=== PATIENT | female | born 1955 | race Asian ===

== ENCOUNTER 2022-12-08 10:18 | Day surgery (SDC) | payer OTHER ==
[2022-12-06 11:12] VITALS: BMI 26.6
[2022-12-08] MEDS: PHENYLEPHRINE 2.5% OPTHALMIC DROP 2ML BOTTLE ONE ×3 (10:55→11:05)
[2022-12-08] MEDS: TROPICAMIDE 1% OPHTH SOLN 15 ML BOTTLE ONE ×3 (10:55→11:05)
[2022-12-08] MEDS: CYCLOPENTOLATE 2% OPHTH SOLN 2 ML BOTTLE ONE ×3 (10:55→11:05)
[2022-12-08] MEDS: CIPROFLOXACIN 0.3% EYE DROPS 5 ML BOTTLE ONE ×2 (10:55→11:05)
[2022-12-08] MEDS ORDERED: BSS (NA/CA/MG/K) BALANCED SALT SOLUTION OPHTH SOLN 15 ML BOTTLE ONE (10:58)
[2022-12-08] MEDS ORDERED: NEO/POLYMYX B SULF/DEXAMETH OPHTHALMIC 5ML BOTTLE ONE (10:58)
[2022-12-08] MEDS ORDERED: CARBACHOL 0.01% INTRA-OCULAR 1.5 ML VIAL ONE (10:58)
[2022-12-08] MEDS ORDERED: TETRACAINE 0.5% OPHTH SOLN 2 ML BOTTLE ONE (10:58)
[2022-12-08] MEDS ORDERED: CIPROFLOXACIN 0.3% EYE DROPS 5 ML BOTTLE OD ONE (11:00)
[2022-12-08] MEDS ORDERED: MIDAZOLAM HCL 2 MG/2 ML SINGLE DOSE VIAL ONE (11:27)
[2022-12-08 12:34] VITALS: PULSE 86; RESP 16; TEMP 97.6
[2022-12-08 12:36] VITALS: BP 137/82
== END 2022-12-08 12:30 | disposition home or self-care (01) ==
LOC: FASU 10:18
PROVIDERS: ATTEND Ophthalmology
PROC: 08RJ3JZ Replacement of Right Lens with Synthetic Substitute, Percutaneous Approach (ICD-10-PCS; principal; 2022-12-08 11:32)
DX: H26.8 Other specified cataract (principal)
CPT/HCPCS: 66984; V2632; 82962

== ENCOUNTER 2022-12-29 06:58 | Day surgery (SDC) | payer OTHER ==
[2022-12-23 11:15] VITALS: BMI 26.5
[2022-12-29] MEDS ORDERED: LIDOCAINE 1% P/F 10 MG/ML VIAL ONE (07:19)
[2022-12-29] MEDS ORDERED: TETRACAINE 0.5% OPHTH SOLN 2 ML BOTTLE ONE (07:19)
[2022-12-29] MEDS ORDERED: CARBACHOL 0.01% INTRA-OCULAR 1.5 ML VIAL ONE (07:19)
[2022-12-29] MEDS ORDERED: NEO/POLYMYX B SULF/DEXAMETH OPHTHALMIC 5ML BOTTLE ONE (07:19)
[2022-12-29] MEDS ORDERED: BSS (NA/CA/MG/K) BALANCED SALT SOLUTION OPHTH SOLN 15 ML BOTTLE ONE (07:19)
[2022-12-29] MEDS: TROPICAMIDE 1% OPHTH SOLN 15 ML BOTTLE ONE ×3 (07:30→07:40)
[2022-12-29] MEDS: CIPROFLOXACIN 0.3% EYE DROPS 5 ML BOTTLE ONE ×3 (07:30→07:40)
[2022-12-29] MEDS: PHENYLEPHRINE 2.5% OPTHALMIC DROP 2ML BOTTLE ONE ×3 (07:30→07:40)
[2022-12-29] MEDS: CYCLOPENTOLATE 2% OPHTH SOLN 2 ML BOTTLE ONE ×3 (07:30→07:40)
[2022-12-29 07:35] VITALS: RESP 16
[2022-12-29] MEDS ORDERED: MIDAZOLAM HCL 2 MG/2 ML SINGLE DOSE VIAL ONE (08:26)
[2022-12-29] MEDS ORDERED: ONDANSETRON 4 MG/2 ML VIAL ONE (08:26)
[2022-12-29 09:34] VITALS: TEMP 98
[2022-12-29 10:23] VITALS: BP 113/62; PULSE 90
== END 2022-12-29 09:55 | disposition home or self-care (01) ==
LOC: FASU 06:58
PROVIDERS: ATTEND Ophthalmology
PROC: 08RK3JZ Replacement of Left Lens with Synthetic Substitute, Percutaneous Approach (ICD-10-PCS; principal; 2022-12-29 09:02)
DX: H26.8 Other specified cataract (principal)
CPT/HCPCS: 66984; V2632; 82962

== ENCOUNTER 2023-10-02 06:58 | Inpatient (IN) | payer OTHER ==
[2023-10-02 07:29] VITALS: BMI 23.6
[2023-10-02] MEDS ORDERED: SODIUM CHLORIDE 0.9% 500 ML INFUS.BAG IV ONE ×2 (08:08→11:35)
[2023-10-02 08:29] LABS: EOS % 5.1 % (0-4.5); HEMATOCRIT 17.9 % (32.4-45.2); INR 1.38 (0.83-1.09); LYMPH % 16.6 % (8-40); MCH 34.5 pg (25.7-33.7); MCHC 31.3 g/dl (32.0-36.0); MEAN PLT VOLUME 7.4 fl (7.5-11.1); MONO % 6.8 % (3.8-10.2); NEUT % 70.5 % (42.8-82.8); PLATELET COUNT 333 10^3/uL (134-434); PROTHROMBIN TIME (PATIENT) 15.9 SEC (9.7-13.0); RBC 1.63 M/mm3 (3.60-5.2); RDW 23.3 % (11.6-15.6); WHITE BLOOD COUNT 7.7 K/mm3 (4.0-10.0)
[2023-10-02] MEDS ORDERED: PIPERACILLIN/TAZOB 3.375 GM 3.375 GM in DEXTROSE 5%-WATER - 50 ML IVPB ONE (08:29)
[2023-10-02] MEDS ORDERED: VANCOMYCIN 1,000 MG in DEXTROSE 5%-WATER - 250 ML IVPB ONE (08:29)
[2023-10-02 08:32] LABS: ACTIVATED PTT 35.7 SECONDS (25.2-36.5)
[2023-10-02 08:34] LABS: HEMOGLOBIN 5.6 GM/dL (10.7-15.3)
[2023-10-02 08:43] LABS: CHLORIDE 101 mmol/L (98-107); POTASSIUM 5.4 mmol/L (3.5-5.1); SODIUM 133 mmol/L (136-145)
[2023-10-02 08:45] LABS: CALCIUM 7.8 mg/dL (8.5-10.1)
[2023-10-02 08:46] LABS: ALBUMIN 1.8 g/dl (3.4-5.0); ANION GAP 20 mmol/L (4-13); CO2 12 mmol/L (21-32); GLUCOSE,RANDOM 307 mg/dL (74-106)
[2023-10-02 08:50] LABS: SGOT/AST 24 U/L (15-37); SGPT/ALT 19 U/L (13-61)
[2023-10-02 08:51] LABS: BILIRUBIN,TOTAL 0.3 mg/dL (0.2-1); TOT PROT 5.6 g/dl (6.4-8.2)
[2023-10-02 08:52] LABS: ALK PHOS 100 U/L (45-117)
[2023-10-02] MEDS ORDERED: ACETAMINOPHEN 1000 MG/100 ML BAG IVPB ONE (08:53)
[2023-10-02 08:56] LABS: CREATININE 10.4 mg/dL (0.55-1.3)
[2023-10-02 09:00] LABS: VENOUS BASE EXCESS -15.4 mmol/L (-2-2); VENOUS PCO2 32.9 mmHg (38-52)
[2023-10-02 09:06] LABS: VENOUS PH 7.169 (7.310-7.410)
[2023-10-02] MEDS ORDERED: PANTOPRAZOLE SODIUM 40 MG VIAL IVPUSH ONE (09:41)
[2023-10-02] MEDS ORDERED: PANTOPRAZOLE SODIUM 80 MG in SODIUM CHLORIDE 100 ML IVPB SCH (09:45)
[2023-10-02] MEDS ORDERED: PANTOPRAZOLE SODIUM 40 MG VIAL ONE (11:37)
[2023-10-02] MEDS ORDERED: ACETAMINOPHEN INJECTION 100 ML IVPB ONE (11:37)
[2023-10-02] MEDS ORDERED: PHYTONADIONE 10 MG/1 ML AMP IVPB ONE (12:15)
[2023-10-02] MEDS ORDERED: VANCOMYCIN 1 GRAM (PRE-DOCKED) 1,000 MG/250 ML BAG IVPB ONE (12:28)
[2023-10-02] MEDS ORDERED: PIPERACILLIN/TAZOB 3.375 GM 3.375 GM/50 ML BAG IVPB ONE (12:29)
[2023-10-02 12:36] LABS: BASO % 0.5 % (0-2.0); EOS % 0.4 % (0-4.5); HEMATOCRIT 29.4 % (32.4-45.2); HEMOGLOBIN 9.8 GM/dL (10.7-15.3); LYMPH % 17.3 % (8-40); MCH 32.3 pg (25.7-33.7); MCHC 33.4 g/dl (32.0-36.0); MEAN CELL VOLUME 96.6 fl (80-96); MONO % 10.3 % (3.8-10.2); NEUT % 71.5 % (42.8-82.8); PLATELET COUNT 283 10^3/uL (134-434); RBC 3.05 M/mm3 (3.60-5.2); RDW 22.3 % (11.6-15.6); WHITE BLOOD COUNT 9.4 K/mm3 (4.0-10.0)
[2023-10-02] MEDS: PANTOPRAZOLE SODIUM 160 MG in SODIUM CHLORIDE 290 ML IVPB SCH (12:38)
[2023-10-02] MEDS ORDERED: PHYTONADIONE 10 MG/1 ML AMP ONE (12:48)
[2023-10-02 12:54] LABS: CHLORIDE 102 mmol/L (98-107); POTASSIUM 5.4 mmol/L (3.5-5.1); SODIUM 136 mmol/L (136-145)
[2023-10-02 12:56] LABS: CALCIUM 7.8 mg/dL (8.5-10.1)
[2023-10-02 12:57] LABS: ANION GAP 14 mmol/L (4-13); CO2 21 mmol/L (21-32); GLUCOSE,RANDOM 167 mg/dL (74-106); MAGNESIUM 2.2 mg/dL (1.8-2.4)
[2023-10-02 13:00] LABS: IRON SERUM 190 ug/dL (50-175); TOTAL IRON BINDING CAPACITY 195 ug/dL (250-450)
[2023-10-02 13:09] LABS: LACTIC ACID 4.2 mmol/L (0.4-2.0)
[2023-10-02 13:30] LABS: CREATININE 10.2 mg/dL (0.55-1.3); PHOSPHOROUS 8.7 mg/dL (2.5-4.9)
[2023-10-02 13:47] LABS: ANISOCYTOSIS 2+; MACROCYTOSIS 2+
[2023-10-02 15:12] LABS: VENOUS BASE EXCESS -4.4 mmol/L (-2-2); VENOUS O2 SATURATION 41.2 % (70-80); VENOUS PCO2 36.2 mmHg (38-52); VENOUS PH 7.369 (7.310-7.410)
[2023-10-02] MEDS ORDERED: ACETAMINOPHEN 325 MG TABLET (FP) PO ONE (17:21)
[2023-10-02] MEDS ORDERED: ACETAMINOPHEN 500 MG TABLET (FP) ONE (17:54)
[2023-10-02] MEDS: INSULIN ASPART SLIDING SCALE (NOVOLOG) 1 VIAL SQ SCH (18:01)
[2023-10-03] MEDS: INSULIN ASPART SLIDING SCALE (NOVOLOG) 1 VIAL SQ SCH ×3 (06:35→17:25)
[2023-10-03 09:06] LABS: BASO % 0.8 % (0-2.0); EOS % 16.2 % (0-4.5); HEMATOCRIT 25.8 % (32.4-45.2); HEMOGLOBIN 8.8 GM/dL (10.7-15.3); LYMPH % 14.7 % (8-40); MCH 33.4 pg (25.7-33.7); MCHC 33.9 g/dl (32.0-36.0); MEAN CELL VOLUME 98.4 fl (80-96); MEAN PLT VOLUME 7.2 fl (7.5-11.1); MONO % 7.4 % (3.8-10.2); NEUT % 60.9 % (42.8-82.8); PLATELET COUNT 274 10^3/uL (134-434); RBC 2.63 M/mm3 (3.60-5.2); RDW 25.2 % (11.6-15.6); WHITE BLOOD COUNT 13.4 K/mm3 (4.0-10.0)
[2023-10-03 09:11] LABS: INR 1.17 (0.83-1.09); PROTHROMBIN TIME (PATIENT) 13.5 SEC (9.7-13.0)
[2023-10-03 09:41] LABS: CHLORIDE 102 mmol/L (98-107); POTASSIUM 4.8 mmol/L (3.5-5.1); SODIUM 139 mmol/L (136-145)
[2023-10-03 09:42] LABS: CALCIUM 8.3 mg/dL (8.5-10.1)
[2023-10-03 09:44] LABS: ANION GAP 14 mmol/L (4-13); BLOOD UREA NITROGEN 60.7 mg/dL (7-18); CO2 24 mmol/L (21-32); GLUCOSE,RANDOM 155 mg/dL (74-106); MAGNESIUM 1.9 mg/dL (1.8-2.4)
[2023-10-03 09:47] LABS: SGOT/AST 21 U/L (15-37); SGPT/ALT 16 U/L (13-61)
[2023-10-03 09:48] LABS: BILIRUBIN,TOTAL 0.5 mg/dL (0.2-1); PHOSPHOROUS 8.7 mg/dL (2.5-4.9); TOT PROT 5.3 g/dl (6.4-8.2)
[2023-10-03 09:49] LABS: ALK PHOS 91 U/L (45-117)
[2023-10-03 11:05] LABS: CREATININE 10.5 mg/dL (0.55-1.3)
[2023-10-03] MEDS: PANTOPRAZOLE SODIUM 160 MG in SODIUM CHLORIDE 290 ML IVPB SCH (12:23)
[2023-10-03] MEDS ORDERED: INSULIN ASPART SLIDING SCALE (NOVOLOG) 1 VIAL SQ ONE (12:24)
[2023-10-03] MEDS: ACETAMINOPHEN 325 MG TABLET (FP) PO PRN (15:54)
[2023-10-03] MEDS ORDERED: ACETAMINOPHEN 1000 MG/100 ML BAG IVPB ONE (17:31)
[2023-10-03] MEDS: PERITONEAL DIALYSIS 1.5% SOLN 2,500 ML IP SCH (17:55)
[2023-10-04] MEDS: PERITONEAL DIALYSIS 1.5% SOLN 2,500 ML IP SCH ×5 (00:30→23:40)
[2023-10-04] MEDS: PANTOPRAZOLE SODIUM 160 MG in SODIUM CHLORIDE 290 ML IVPB SCH (03:37)
[2023-10-04] MEDS: INSULIN ASPART SLIDING SCALE (NOVOLOG) 1 VIAL SQ SCH ×3 (06:30→17:50)
[2023-10-04 08:51] LABS: MCH 34.5 pg (25.7-33.7); MEAN CELL VOLUME 98.8 fl (80-96); MEAN PLT VOLUME 7.2 fl (7.5-11.1); PLATELET COUNT 232 10^3/uL (134-434); RBC 2.33 M/mm3 (3.60-5.2); RDW 25.1 % (11.6-15.6); WHITE BLOOD COUNT 9.5 K/mm3 (4.0-10.0)
[2023-10-04 08:54] LABS: INR 1.08 (0.83-1.09); PROTHROMBIN TIME (PATIENT) 12.5 SEC (9.7-13.0)
[2023-10-04 09:08] LABS: CHLORIDE 101 mmol/L (98-107); SODIUM 137 mmol/L (136-145)
[2023-10-04 09:13] LABS: ANION GAP 14 mmol/L (4-13); CALCIUM 8.9 mg/dL (8.5-10.1); CO2 23 mmol/L (21-32); GLUCOSE,RANDOM 179 mg/dL (74-106)
[2023-10-04 09:15] LABS: ALBUMIN 1.8 g/dl (3.4-5.0); BLOOD UREA NITROGEN 52.6 mg/dL (7-18)
[2023-10-04 09:16] LABS: SGPT/ALT 16 U/L (13-61)
[2023-10-04 09:17] LABS: BILIRUBIN,TOTAL 0.4 mg/dL (0.2-1); SGOT/AST 18 U/L (15-37); TOT PROT 5.1 g/dl (6.4-8.2)
[2023-10-04 09:19] LABS: ALK PHOS 115 U/L (45-117)
[2023-10-04 09:22] LABS: CREATININE 9.7 mg/dL (0.55-1.3)
[2023-10-04 09:50] LABS: ANISOCYTOSIS 1+
[2023-10-04] MEDS ORDERED: INSULIN ASPART SLIDING SCALE (NOVOLOG) 1 VIAL SQ ONE (12:10)
[2023-10-04] MEDS: PANTOPRAZOLE SODIUM 40 MG VIAL IVPUSH SCH (22:55)
[2023-10-04] MEDS: ACETAMINOPHEN 325 MG TABLET (FP) PO PRN (23:00)
[2023-10-05] MEDS: INSULIN ASPART SLIDING SCALE (NOVOLOG) 1 VIAL SQ SCH ×3 (06:09→17:36)
[2023-10-05] MEDS: PERITONEAL DIALYSIS 1.5% SOLN 2,500 ML IP SCH ×3 (06:43→19:27)
[2023-10-05 08:54] LABS: HEMATOCRIT 23.9 % (32.4-45.2); HEMOGLOBIN 8.1 GM/dL (10.7-15.3); MCH 33.4 pg (25.7-33.7); MCHC 33.8 g/dl (32.0-36.0); MEAN CELL VOLUME 98.7 fl (80-96); MEAN PLT VOLUME 7.4 fl (7.5-11.1); PLATELET COUNT 214 10^3/uL (134-434); RBC 2.42 M/mm3 (3.60-5.2); RDW 24.6 % (11.6-15.6)
[2023-10-05] MEDS ORDERED: IRON SUCROSE INJECTION 200 MG in SODIUM CHLORIDE 90 ML IVPB ONE (09:10)
[2023-10-05 09:14] LABS: CHLORIDE 99 mmol/L (98-107); POTASSIUM 3.2 mmol/L (3.5-5.1); SODIUM 137 mmol/L (136-145)
[2023-10-05 09:17] LABS: CALCIUM 8.3 mg/dL (8.5-10.1)
[2023-10-05 09:18] LABS: ALBUMIN 1.7 g/dl (3.4-5.0); ANION GAP 14 mmol/L (4-13); BLOOD UREA NITROGEN 42.3 mg/dL (7-18); CO2 24 mmol/L (21-32); GLUCOSE,RANDOM 194 mg/dL (74-106)
[2023-10-05 09:21] LABS: SGOT/AST 20 U/L (15-37); SGPT/ALT 15 U/L (13-61)
[2023-10-05 09:22] LABS: TOT PROT 4.9 g/dl (6.4-8.2)
[2023-10-05 09:23] LABS: BILIRUBIN,TOTAL 0.4 mg/dL (0.2-1)
[2023-10-05 09:25] LABS: ALK PHOS 97 U/L (45-117)
[2023-10-05 09:29] LABS: CREATININE 8.3 mg/dL (0.55-1.3)
[2023-10-05] MEDS: PANTOPRAZOLE SODIUM 40 MG VIAL IVPUSH SCH (09:52)
[2023-10-05 09:58] LABS: MAGNESIUM 1.8 mg/dL (1.8-2.4)
[2023-10-05 11:02] LABS: ANISOCYTOSIS 1+; MACROCYTOSIS 2+
[2023-10-05] MEDS ORDERED: POTASSIUM CHLORIDE ORAL LIQUID 20 MEQ/15 ML PO ONE ×2 (11:22→13:45)
[2023-10-05 11:56] LABS: IRON SERUM 155 ug/dL (50-175)
[2023-10-05 11:57] LABS: TOTAL IRON BINDING CAPACITY 204 ug/dL (250-450)
[2023-10-05 12:19] LABS: IRON SERUM 69 ug/dL (50-175); TOTAL IRON BINDING CAPACITY 166 ug/dL (250-450)
[2023-10-05 19:08] LABS: IG A QN SERUM. 514 mg/dL (87-352)
[2023-10-05] MEDS: ACETAMINOPHEN 325 MG TABLET (FP) PO PRN (21:40)
[2023-10-05] MEDS: PANTOPRAZOLE 40 MG TABLET PO SCH (21:40)
[2023-10-06] MEDS: PERITONEAL DIALYSIS 1.5% SOLN 2,500 ML IP SCH ×5 (01:19→23:50)
[2023-10-06] MEDS ORDERED: INSULIN ASPART SLIDING SCALE (NOVOLOG) 1 VIAL SQ ONE (06:33)
[2023-10-06] MEDS: INSULIN ASPART SLIDING SCALE (NOVOLOG) 1 VIAL SQ SCH ×3 (06:42→17:26)
[2023-10-06 09:11] LABS: HEMATOCRIT 24.4 % (32.4-45.2); HEMOGLOBIN 8.2 GM/dL (10.7-15.3); MCH 33.9 pg (25.7-33.7); MCHC 33.5 g/dl (32.0-36.0); MEAN CELL VOLUME 101.3 fl (80-96); MEAN PLT VOLUME 7.5 fl (7.5-11.1); PLATELET COUNT 231 10^3/uL (134-434); RBC 2.41 M/mm3 (3.60-5.2); RDW 25.3 % (11.6-15.6); RETICULOCYTES 5.89 % (0.5-1.5); WHITE BLOOD COUNT 9.8 K/mm3 (4.0-10.0)
[2023-10-06 09:39] LABS: CHLORIDE 100 mmol/L (98-107); POTASSIUM 3.7 mmol/L (3.5-5.1); SODIUM 137 mmol/L (136-145)
[2023-10-06 09:50] LABS: ALBUMIN 1.7 g/dl (3.4-5.0); ANION GAP 12 mmol/L (4-13); BLOOD UREA NITROGEN 31.7 mg/dL (7-18); CALCIUM 8.4 mg/dL (8.5-10.1); CO2 25 mmol/L (21-32)
[2023-10-06 09:52] LABS: SGPT/ALT 20 U/L (13-61)
[2023-10-06 09:53] LABS: IRON SERUM 159 ug/dL (50-175); SGOT/AST 24 U/L (15-37); TOTAL IRON BINDING CAPACITY 167 ug/dL (250-450)
[2023-10-06 09:54] LABS: TOT PROT 5.1 g/dl (6.4-8.2)
[2023-10-06 09:56] LABS: ALK PHOS 91 U/L (45-117)
[2023-10-06 09:58] LABS: BILIRUBIN,TOTAL 0.4 mg/dL (0.2-1)
[2023-10-06 10:01] LABS: GLUCOSE,RANDOM 146 mg/dL (74-106)
[2023-10-06 10:11] LABS: CREATININE 7.6 mg/dL (0.55-1.3)
[2023-10-06 10:57] LABS: ANISOCYTOSIS 2+; MACROCYTOSIS 2+
[2023-10-06] MEDS: PANTOPRAZOLE 40 MG TABLET PO SCH ×2 (11:16→21:03)
[2023-10-06 15:20] LABS: HEMATOCRIT 24.7 % (32.4-45.2); HEMOGLOBIN 8.1 GM/dL (10.7-15.3); MCH 32.5 pg (25.7-33.7); MCHC 32.9 g/dl (32.0-36.0); MEAN CELL VOLUME 98.7 fl (80-96); MEAN PLT VOLUME 7.3 fl (7.5-11.1); PLATELET COUNT 237 10^3/uL (134-434); RDW 24.5 % (11.6-15.6); WHITE BLOOD COUNT 9.6 K/mm3 (4.0-10.0)
[2023-10-06 15:45] LABS: ANISOCYTOSIS 1+; MACROCYTOSIS 1+
[2023-10-07] MEDS: ACETAMINOPHEN 325 MG TABLET (FP) PO PRN ×2 (05:44→11:26)
[2023-10-07] MEDS: PERITONEAL DIALYSIS 1.5% SOLN 2,500 ML IP SCH ×4 (06:04→23:56)
[2023-10-07] MEDS: INSULIN ASPART SLIDING SCALE (NOVOLOG) 1 VIAL SQ SCH ×3 (06:29→17:02)
[2023-10-07 09:54] LABS: HEMOGLOBIN 7.4 GM/dL (10.7-15.3); MCH 34.1 pg (25.7-33.7); MCHC 33.5 g/dl (32.0-36.0); MEAN CELL VOLUME 101.6 fl (80-96); MEAN PLT VOLUME 7.5 fl (7.5-11.1); PLATELET COUNT 221 10^3/uL (134-434); RBC 2.17 M/mm3 (3.60-5.2); RDW 25.3 % (11.6-15.6); WHITE BLOOD COUNT 9.3 K/mm3 (4.0-10.0)
[2023-10-07] MEDS: PANTOPRAZOLE 40 MG TABLET PO SCH ×2 (09:57→21:04)
[2023-10-07 10:18] LABS: POTASSIUM 3.6 mmol/L (3.5-5.1)
[2023-10-07 10:24] LABS: ALBUMIN 1.6 g/dl (3.4-5.0); CALCIUM 8.5 mg/dL (8.5-10.1)
[2023-10-07 10:27] LABS: CREATININE 7.3 mg/dL (0.55-1.3)
[2023-10-07 10:28] LABS: BILIRUBIN,TOTAL 0.4 mg/dL (0.2-1); TOT PROT 4.7 g/dl (6.4-8.2)
[2023-10-07 10:37] LABS: ANISOCYTOSIS 1+; MACROCYTOSIS 1+
[2023-10-07 14:18] LABS: HEMATOCRIT 23.2 % (32.4-45.2); HEMOGLOBIN 7.5 GM/dL (10.7-15.3); MCH 32.8 pg (25.7-33.7); MCHC 32.5 g/dl (32.0-36.0); MEAN CELL VOLUME 100.7 fl (80-96); MEAN PLT VOLUME 7.4 fl (7.5-11.1); PLATELET COUNT 253 10^3/uL (134-434); RDW 25.8 % (11.6-15.6); WHITE BLOOD COUNT 9.3 K/mm3 (4.0-10.0)
[2023-10-07 15:08] LABS: ANISOCYTOSIS 2+; MACROCYTOSIS 1+
[2023-10-08] MEDS: ACETAMINOPHEN 325 MG TABLET (FP) PO PRN ×2 (05:46→11:41)
[2023-10-08] MEDS: PERITONEAL DIALYSIS 1.5% SOLN 2,500 ML IP SCH ×3 (05:57→17:05)
[2023-10-08] MEDS: INSULIN ASPART SLIDING SCALE (NOVOLOG) 1 VIAL SQ SCH ×3 (06:12→17:19)
[2023-10-08 08:35] LABS: HEMATOCRIT 22.3 % (32.4-45.2); HEMOGLOBIN 7.2 GM/dL (10.7-15.3); MCH 33.3 pg (25.7-33.7); MCHC 32.5 g/dl (32.0-36.0); MEAN CELL VOLUME 102.5 fl (80-96); MEAN PLT VOLUME 7.7 fl (7.5-11.1); PLATELET COUNT 282 10^3/uL (134-434); RBC 2.17 M/mm3 (3.60-5.2); RDW 25.6 % (11.6-15.6); WHITE BLOOD COUNT 8.8 K/mm3 (4.0-10.0)
[2023-10-08 09:19] LABS: ANISOCYTOSIS 2+; MACROCYTOSIS 1+; OVALOCYTE 1+
[2023-10-08 09:22] LABS: PLATELET ESTIMATE ADEQUATE
[2023-10-08] MEDS: PANTOPRAZOLE 40 MG TABLET PO SCH (09:54)
[2023-10-09] MEDS: PANTOPRAZOLE 40 MG TABLET PO SCH ×3 (01:29→21:17)
[2023-10-09] MEDS: PERITONEAL DIALYSIS 1.5% SOLN 2,500 ML IP SCH ×5 (02:05→21:16)
[2023-10-09] MEDS: INSULIN ASPART SLIDING SCALE (NOVOLOG) 1 VIAL SQ SCH ×3 (06:16→17:37)
[2023-10-09 08:07] LABS: HEMATOCRIT 22.2 % (32.4-45.2); HEMOGLOBIN 7.5 GM/dL (10.7-15.3); MCH 34.4 pg (25.7-33.7); MCHC 33.7 g/dl (32.0-36.0); MEAN PLT VOLUME 7.2 fl (7.5-11.1); PLATELET COUNT 289 10^3/uL (134-434); RBC 2.17 M/mm3 (3.60-5.2); RDW 26.1 % (11.6-15.6); WHITE BLOOD COUNT 8.8 K/mm3 (4.0-10.0)
[2023-10-09] MEDS: ACETAMINOPHEN 325 MG TABLET (FP) PO PRN ×3 (09:06→21:17)
[2023-10-09] MEDS: SEVELAMER CARBONATE 800 MG TAB (FP) PO SCH (17:37)
[2023-10-10] MEDS: PERITONEAL DIALYSIS 1.5% SOLN 2,500 ML IP SCH ×4 (03:32→21:16)
[2023-10-10] MEDS: ACETAMINOPHEN 325 MG TABLET (FP) PO PRN ×4 (03:32→21:05)
[2023-10-10] MEDS: INSULIN ASPART SLIDING SCALE (NOVOLOG) 1 VIAL SQ SCH ×3 (06:13→17:26)
[2023-10-10 07:38] LABS: HEMATOCRIT 27.9 % (32.4-45.2); HEMOGLOBIN 9.4 GM/dL (10.7-15.3); MCHC 33.9 g/dl (32.0-36.0); MEAN CELL VOLUME 97.3 fl (80-96); MEAN PLT VOLUME 7.3 fl (7.5-11.1); PLATELET COUNT 318 10^3/uL (134-434); RBC 2.86 M/mm3 (3.60-5.2); RDW 23.8 % (11.6-15.6); WHITE BLOOD COUNT 10.1 K/mm3 (4.0-10.0)
[2023-10-10 08:25] LABS: POTASSIUM 3.1 mmol/L (3.5-5.1)
[2023-10-10 08:26] LABS: BLOOD UREA NITROGEN 25.7 mg/dL (7-18); CALCIUM 8.5 mg/dL (8.5-10.1); MAGNESIUM 1.4 mg/dL (1.8-2.4)
[2023-10-10 08:30] LABS: CREATININE 6.8 mg/dL (0.55-1.3)
[2023-10-10] MEDS ORDERED: SEVELAMER CARBONATE 800 MG TAB (FP) PO SCH (09:00)
[2023-10-10] MEDS ORDERED: MAGNESIUM 2GM/50ML STERILE WATER IVPB IVPB ONE (09:02)
[2023-10-10] MEDS ORDERED: POTASSIUM CHLORIDE ORAL LIQUID 20 MEQ/15 ML PO ONE ×2 (09:02→16:03)
[2023-10-10] MEDS: CHOLECALCIFEROL (VIT D3) 1,000 UNIT (25 MCG) TABLET PO SCH (09:42)
[2023-10-10] MEDS: PANTOPRAZOLE 40 MG TABLET PO SCH ×2 (09:42→21:04)
[2023-10-10] MEDS: ASCORBIC ACID 500 MG TABLET (FP) PO SCH (09:42)
[2023-10-10] MEDS: SEVELAMER CARBONATE 800 MG TAB (FP) PO SCH ×3 (09:42→17:19)
[2023-10-10] MEDS: GABAPENTIN 100 MG CAPSULE PO SCH (21:04)
[2023-10-10] MEDS: ATORVASTATIN CA 10 MG TABLET (FP) PO SCH (21:16)
[2023-10-11] MEDS: ACETAMINOPHEN 325 MG TABLET (FP) PO PRN ×5 (03:13→23:00)
[2023-10-11] MEDS: PERITONEAL DIALYSIS 1.5% SOLN 2,500 ML IP SCH ×4 (03:15→21:52)
[2023-10-11] MEDS: INSULIN ASPART SLIDING SCALE (NOVOLOG) 1 VIAL SQ SCH ×3 (06:14→17:39)
[2023-10-11] MEDS: SEVELAMER CARBONATE 800 MG TAB (FP) PO SCH ×3 (08:15→17:58)
[2023-10-11] MEDS: ASCORBIC ACID 500 MG TABLET (FP) PO SCH (09:18)
[2023-10-11] MEDS: PANTOPRAZOLE 40 MG TABLET PO SCH ×2 (09:18→23:02)
[2023-10-11] MEDS: CHOLECALCIFEROL (VIT D3) 1,000 UNIT (25 MCG) TABLET PO SCH (09:18)
[2023-10-11 09:26] LABS: BASO % 0.3 % (0-2.0); EOS % 18.8 % (0-4.5); HEMATOCRIT 25.8 % (32.4-45.2); HEMOGLOBIN 8.6 GM/dL (10.7-15.3); MCHC 33.4 g/dl (32.0-36.0); MEAN CELL VOLUME 98.9 fl (80-96); MEAN PLT VOLUME 7.4 fl (7.5-11.1); NEUT % 51.9 % (42.8-82.8); PLATELET COUNT 281 10^3/uL (134-434); RBC 2.61 M/mm3 (3.60-5.2); RDW 24.2 % (11.6-15.6); WHITE BLOOD COUNT 9.8 K/mm3 (4.0-10.0)
[2023-10-11 09:36] LABS: POTASSIUM 3.5 mmol/L (3.5-5.1)
[2023-10-11 09:38] LABS: CALCIUM 7.9 mg/dL (8.5-10.1)
[2023-10-11 09:39] LABS: ALBUMIN 1.4 g/dl (3.4-5.0); MAGNESIUM 2.1 mg/dL (1.8-2.4)
[2023-10-11 09:42] LABS: CREATININE 6.6 mg/dL (0.55-1.3); PHOSPHOROUS 4.4 mg/dL (2.5-4.9)
[2023-10-11 09:43] LABS: BILIRUBIN,TOTAL 0.3 mg/dL (0.2-1)
[2023-10-11 09:44] LABS: TOT PROT 4.8 g/dl (6.4-8.2)
[2023-10-11 12:28] LABS: ANISOCYTOSIS 1+; MACROCYTOSIS 1+
[2023-10-11 13:54] LABS: BASO % 0.5 % (0-2.0); EOS % 17.5 % (0-4.5); HEMATOCRIT 27.8 % (32.4-45.2); HEMOGLOBIN 9.2 GM/dL (10.7-15.3); LYMPH % 13.6 % (8-40); MCH 32.7 pg (25.7-33.7); MCHC 32.9 g/dl (32.0-36.0); MEAN CELL VOLUME 99.2 fl (80-96); MONO % 10.4 % (3.8-10.2); PLATELET COUNT 307 10^3/uL (134-434); RBC 2.81 M/mm3 (3.60-5.2); WHITE BLOOD COUNT 9.9 K/mm3 (4.0-10.0)
[2023-10-11] MEDS ORDERED: ACETAMINOPHEN 1000 MG/100 ML BAG IVPB ONE (18:15)
[2023-10-11 21:14] LABS: ANISOCYTOSIS 3+; MACROCYTOSIS 0
[2023-10-11] MEDS: GABAPENTIN 100 MG CAPSULE PO SCH (23:01)
[2023-10-11] MEDS: ATORVASTATIN CA 10 MG TABLET (FP) PO SCH (23:02)
[2023-10-12] MEDS: PERITONEAL DIALYSIS 1.5% SOLN 2,500 ML IP SCH ×3 (03:35→16:33)
[2023-10-12] MEDS: INSULIN ASPART SLIDING SCALE (NOVOLOG) 1 VIAL SQ SCH ×3 (06:25→17:30)
[2023-10-12 07:38] LABS: BASO % 0.4 % (0-2.0); EOS % 16.7 % (0-4.5); HEMATOCRIT 27.3 % (32.4-45.2); HEMOGLOBIN 9.1 GM/dL (10.7-15.3); LYMPH % 15.9 % (8-40); MCH 33.2 pg (25.7-33.7); MCHC 33.4 g/dl (32.0-36.0); MEAN CELL VOLUME 99.3 fl (80-96); MEAN PLT VOLUME 7.2 fl (7.5-11.1); MONO % 11.3 % (3.8-10.2); NEUT % 55.7 % (42.8-82.8); PLATELET COUNT 334 10^3/uL (134-434); RBC 2.75 M/mm3 (3.60-5.2); RDW 23.8 % (11.6-15.6); WHITE BLOOD COUNT 10.6 K/mm3 (4.0-10.0)
[2023-10-12 07:52] LABS: POTASSIUM 3.2 mmol/L (3.5-5.1)
[2023-10-12 07:57] LABS: CALCIUM 8.4 mg/dL (8.5-10.1)
[2023-10-12] MEDS: SEVELAMER CARBONATE 800 MG TAB (FP) PO SCH ×3 (07:57→17:29)
[2023-10-12 07:58] LABS: ALBUMIN 1.5 g/dl (3.4-5.0); BLOOD UREA NITROGEN 26.4 mg/dL (7-18)
[2023-10-12] MEDS: ACETAMINOPHEN 325 MG TABLET (FP) PO PRN (07:58)
[2023-10-12 08:00] LABS: CREATININE 6.1 mg/dL (0.55-1.3)
[2023-10-12 08:01] LABS: TOT PROT 5.1 g/dl (6.4-8.2)
[2023-10-12 08:02] LABS: BILIRUBIN,TOTAL 0.3 mg/dL (0.2-1)
[2023-10-12 09:15] LABS: MAGNESIUM 2.1 mg/dL (1.8-2.4)
[2023-10-12] MEDS: PANTOPRAZOLE 40 MG TABLET PO SCH (09:30)
[2023-10-12] MEDS: CHOLECALCIFEROL (VIT D3) 1,000 UNIT (25 MCG) TABLET PO SCH (09:30)
[2023-10-12] MEDS: ASCORBIC ACID 500 MG TABLET (FP) PO SCH (09:30)
[2023-10-12] MEDS ORDERED: POTASSIUM CHLORIDE ORAL LIQUID 20 MEQ/15 ML PO ONE (10:00)
[2023-10-12 14:40] VITALS: BP 128/67; PULSE 108; RESP 18; TEMP 98.6
== END 2023-10-12 19:41 | disposition home or self-care (01) | DRG 377 ==
LOC: JER 06:58 → JERBED 10:35 → J4S 18:36
PROVIDERS: ADMIT Internal Medicine; ATTEND Internal Medicine
PROC: 30233N1 Transfusion of Nonautologous Red Blood Cells into Peripheral Vein, Percutaneous Approach (ICD-10-PCS; 2023-10-02)
PROC: 3E1M39Z Irrigation of Peritoneal Cavity using Dialysate, Percutaneous Approach (ICD-10-PCS; 2023-10-03)
PROC: 0DB78ZX Excision of Stomach, Pylorus, Via Natural or Artificial Opening Endoscopic, Diagnostic (ICD-10-PCS; 2023-10-05)
PROC: 0W3P8ZZ Control Bleeding in Gastrointestinal Tract, Via Natural or Artificial Opening Endoscopic (ICD-10-PCS; 2023-10-05)
PROC: 0DB68ZX Excision of Stomach, Via Natural or Artificial Opening Endoscopic, Diagnostic (ICD-10-PCS; principal; 2023-10-10 10:00)
DX: K26.4 Chronic or unspecified duodenal ulcer with hemorrhage (principal); N18.6 End stage renal disease; D62 Acute posthemorrhagic anemia; I24.89 Other forms of acute ischemic heart disease; I12.0 Hypertensive chronic kidney disease with stage 5 chronic kidney disease or end stage renal disease; E87.20 Acidosis, unspecified; E11.22 Type 2 diabetes mellitus with diabetic chronic kidney disease; K22.2 Esophageal obstruction; K44.9 Diaphragmatic hernia without obstruction or gangrene; K25.9 Gastric ulcer, unspecified as acute or chronic, without hemorrhage or perforation; E11.65 Type 2 diabetes mellitus with hyperglycemia; E78.2 Mixed hyperlipidemia; K21.9 Gastro-esophageal reflux disease without esophagitis; I34.0 Nonrheumatic mitral (valve) insufficiency; I44.7 Left bundle-branch block, unspecified; E87.6 Hypokalemia; R68.0 Hypothermia, not associated with low environmental temperature; E88.09 Other disorders of plasma-protein metabolism, not elsewhere classified; R01.1 Cardiac murmur, unspecified; L29.8 Other pruritus; Z99.2 Dependence on renal dialysis; Z79.1 Long term (current) use of non-steroidal anti-inflammatories (NSAID)
CPT/HCPCS: 0241U-QW; 36415; 36430; 71045-TC-FY; 80048; 80053; 82136; 82272; 82550; 82607; 82728; 82746; 82784; 82803; 82941; 82962; 83010; 83036; 83540; 83550; 83605; 83615; 83735; 83918; 84100; 84155; 84165; 84484; 85025; 85027; 85045; 85384; 85610; 85730; 86334; 86850; 86870; 86880; 86900; 86901; 86902; 86922; 87040; 88305-TC; 93005; 93010; 93306-TC; 97116-GP; 97161-GP; 99285-25; J1756; P9038; P9058

== ENCOUNTER 2023-10-26 09:07 | Inpatient (IN) | payer OTHER ==
[2023-10-26] MEDS ORDERED: PANTOPRAZOLE SODIUM 80 MG in SODIUM CHLORIDE 100 ML IVPB SCH (11:00)
[2023-10-26] MEDS ORDERED: PANTOPRAZOLE SODIUM 40 MG VIAL ONE (11:31)
[2023-10-26] MEDS: PANTOPRAZOLE SODIUM 40 MG VIAL IVPB ONE (11:43)
[2023-10-26 11:47] LABS: BASO % 0.5 % (0-2.0); EOS % 2.4 % (0-4.5); HEMATOCRIT 22.7 % (32.4-45.2); HEMOGLOBIN 7.7 GM/dL (10.7-15.3); LYMPH % 10.4 % (8-40); MCH 33.2 pg (25.7-33.7); MCHC 33.9 g/dl (32.0-36.0); MEAN PLT VOLUME 6.9 fl (7.5-11.1); MONO % 6.6 % (3.8-10.2); NEUT % 80.1 % (42.8-82.8); PLATELET COUNT 276 10^3/uL (134-434); RBC 2.31 M/mm3 (3.60-5.2); RDW 23.6 % (11.6-15.6); WHITE BLOOD COUNT 12.5 K/mm3 (4.0-10.0)
[2023-10-26 11:57] LABS: INR 1.13 (0.83-1.09); PROTHROMBIN TIME (PATIENT) 13.1 SEC (9.7-13.0)
[2023-10-26 12:00] LABS: ACTIVATED PTT 41.2 SECONDS (25.2-36.5)
[2023-10-26 12:09] LABS: CHLORIDE 93 mmol/L (98-107); POTASSIUM 3.4 mmol/L (3.5-5.1); SODIUM 132 mmol/L (136-145)
[2023-10-26 12:10] LABS: CALCIUM 7.5 mg/dL (8.5-10.1)
[2023-10-26 12:11] LABS: ALBUMIN 1.4 g/dl (3.4-5.0); ANION GAP 15 mmol/L (4-13); BLOOD UREA NITROGEN 58.6 mg/dL (7-18); CO2 24 mmol/L (21-32); GLUCOSE,RANDOM 130 mg/dL (74-106)
[2023-10-26 12:14] LABS: SGOT/AST 54 U/L (15-37); SGPT/ALT 42 U/L (13-61)
[2023-10-26 12:15] LABS: BILIRUBIN,TOTAL 0.5 mg/dL (0.2-1); TOT PROT 5.3 g/dl (6.4-8.2)
[2023-10-26 12:17] LABS: ALK PHOS 327 U/L (45-117)
[2023-10-26 12:19] LABS: N-TERMINAL BNP 7974.7 pg/ml (5-125)
[2023-10-26] MEDS: PANTOPRAZOLE SODIUM 160 MG in SODIUM CHLORIDE 290 ML IVPB SCH (12:23)
[2023-10-26 12:33] LABS: CREATININE 7.9 mg/dL (0.55-1.3)
[2023-10-26 12:56] LABS: ANISOCYTOSIS 2+; MACROCYTOSIS 1+
[2023-10-26] MEDS ORDERED: ACETAMINOPHEN INJECTION 100 ML IVPB ONE (14:15)
[2023-10-26] MEDS: ACETAMINOPHEN 1000 MG/100 ML BAG IVPB ONE (14:19)
[2023-10-26 15:07] LABS: IRON SERUM 25 ug/dL (50-175)
[2023-10-26 15:08] LABS: TOTAL IRON BINDING CAPACITY 109 ug/dL (250-450)
[2023-10-26] MEDS: INSULIN ASPART SLIDING SCALE (NOVOLOG) 1 VIAL SQ SCH (17:28)
[2023-10-27] MEDS: ACETAMINOPHEN 1000 MG/100 ML BAG IVPB ONE (00:02)
[2023-10-27] MEDS: morphine CARPU-JECT 2 MG/1 ML DISP.SYRIN IVPUSH ONE (01:45)
[2023-10-27] MEDS: GABAPENTIN 100 MG CAPSULE PO ONE (03:06)
[2023-10-27 07:52] LABS: BASO % 0.2 % (0-2.0); EOS % 1.1 % (0-4.5); HEMATOCRIT 30.5 % (32.4-45.2); HEMOGLOBIN 10.5 GM/dL (10.7-15.3); LYMPH % 12.4 % (8-40); MCH 32.1 pg (25.7-33.7); MCHC 34.3 g/dl (32.0-36.0); MEAN CELL VOLUME 93.7 fl (80-96); MEAN PLT VOLUME 7.2 fl (7.5-11.1); MONO % 8.3 % (3.8-10.2); PLATELET COUNT 244 10^3/uL (134-434); RBC 3.26 M/mm3 (3.60-5.2); RDW 20.9 % (11.6-15.6); WHITE BLOOD COUNT 12.4 K/mm3 (4.0-10.0)
[2023-10-27] MEDS ORDERED: PANTOPRAZOLE SODIUM 40 MG VIAL ONE (08:21)
[2023-10-27 08:27] LABS: CHLORIDE 93 mmol/L (98-107); POTASSIUM 3.8 mmol/L (3.5-5.1); SODIUM 131 mmol/L (136-145)
[2023-10-27 08:29] LABS: ANION GAP 18 mmol/L (4-13); BLOOD UREA NITROGEN 66.6 mg/dL (7-18); CALCIUM 7.7 mg/dL (8.5-10.1); CO2 19 mmol/L (21-32); GLUCOSE,RANDOM 72 mg/dL (74-106); MAGNESIUM 1.7 mg/dL (1.8-2.4)
[2023-10-27 08:30] LABS: ALBUMIN 1.4 g/dl (3.4-5.0); GAMMA GLUTAMYL TRANSPEPTIDASE 413 U/L (5-85)
[2023-10-27 08:32] LABS: SGPT/ALT 38 U/L (13-61)
[2023-10-27 08:33] LABS: PHOSPHOROUS 7.4 mg/dL (2.5-4.9); SGOT/AST 73 U/L (15-37)
[2023-10-27 08:34] LABS: BILIRUBIN,TOTAL 0.7 mg/dL (0.2-1); TOT PROT 4.9 g/dl (6.4-8.2)
[2023-10-27 08:35] LABS: ALK PHOS 350 U/L (45-117)
[2023-10-27 08:37] LABS: CREATININE 8.1 mg/dL (0.55-1.3)
[2023-10-27] MEDS ORDERED: MAGNESIUM SULFATE IN WATER 2 GM/50 ML IVPB IVPB ONE (11:01)
[2023-10-27] MEDS: MAGNESIUM SULF 50% (8.12 MEQ/2 ML-1 GM VIAL) IVPB ONE (11:10)
[2023-10-27] MEDS: FLUOCINONIDE 0.05% CREAM (60 GM TUBE) TP SCH (15:24)
[2023-10-28] MEDS: hydrOXYzine PAMOATE 25 MG CAPSULE (FP) PO PRN (00:12)
[2023-10-28] MEDS: BENZOCAINE/MENTH/CETYLPYRD CL 1 EACH LOZENGE MM ONE (00:28)
[2023-10-28] MEDS: PERITONEAL DIALYSIS 1.5% SOLN 2,500 ML IP SCH (00:35)
[2023-10-28 10:55] LABS: HEMATOCRIT 29.3 % (32.4-45.2); HEMOGLOBIN 10.2 GM/dL (10.7-15.3); MCH 32.5 pg (25.7-33.7); MCHC 34.7 g/dl (32.0-36.0); MEAN CELL VOLUME 93.7 fl (80-96); MEAN PLT VOLUME 7.2 fl (7.5-11.1); PLATELET COUNT 222 10^3/uL (134-434); RBC 3.12 M/mm3 (3.60-5.2); WHITE BLOOD COUNT 8.5 K/mm3 (4.0-10.0)
[2023-10-28 11:19] LABS: CHLORIDE 92 mmol/L (98-107); POTASSIUM 4.3 mmol/L (3.5-5.1); SODIUM 126 mmol/L (136-145)
[2023-10-28 11:25] LABS: ALBUMIN 1.3 g/dl (3.4-5.0); ANION GAP 18 mmol/L (4-13); CALCIUM 7.7 mg/dL (8.5-10.1); CO2 17 mmol/L (21-32)
[2023-10-28 11:26] LABS: BLOOD UREA NITROGEN 70.7 mg/dL (7-18); GLUCOSE,RANDOM 164 mg/dL (74-106)
[2023-10-28 11:28] LABS: PHOSPHOROUS 8.5 mg/dL (2.5-4.9); SGPT/ALT 38 U/L (13-61)
[2023-10-28 11:29] LABS: SGOT/AST 70 U/L (15-37)
[2023-10-28 11:30] LABS: BILIRUBIN,TOTAL 0.8 mg/dL (0.2-1); TOT PROT 4.8 g/dl (6.4-8.2)
[2023-10-28 11:31] LABS: ALK PHOS 355 U/L (45-117)
[2023-10-28 11:32] LABS: CREATININE 8.8 mg/dL (0.55-1.3)
[2023-10-28 11:47] LABS: ANISOCYTOSIS 2+; MACROCYTOSIS 1+
[2023-10-28] MEDS: SODIUM PHOSPHATE/NA BIPHOS 133 ML ENEMA PR ONE (16:05)
[2023-10-28] MEDS: DOCUSATE SODIUM 100 MG CAPSULE (FP) PO SCH (16:07)
[2023-10-28] MEDS: MINERAL OIL ENEMA 133 ML ENEMA RC ONE (16:26)
[2023-10-28] MEDS: DEXTROSE 50%-WATER 25 GM/50 ML DISP.SYRIN IVPUSH ONE (17:05)
[2023-10-28] MEDS: SEVELAMER CARBONATE 800 MG TAB (FP) PO SCH (17:35)
[2023-10-29] MEDS: ACETAMINOPHEN 1000 MG/100 ML BAG IVPB ONE (02:36)
[2023-10-29 08:31] LABS: BASO % 0.6 % (0-2.0); EOS % 1.8 % (0-4.5); HEMATOCRIT 28.2 % (32.4-45.2); HEMOGLOBIN 9.5 GM/dL (10.7-15.3); LYMPH % 19.7 % (8-40); MCH 32.2 pg (25.7-33.7); MCHC 33.9 g/dl (32.0-36.0); MEAN PLT VOLUME 7.2 fl (7.5-11.1); MONO % 7.9 % (3.8-10.2); PLATELET COUNT 200 10^3/uL (134-434); RBC 2.97 M/mm3 (3.60-5.2); RDW 21.2 % (11.6-15.6); WHITE BLOOD COUNT 6.3 K/mm3 (4.0-10.0)
[2023-10-29 08:35] LABS: CHLORIDE 94 mmol/L (98-107); POTASSIUM 4.4 mmol/L (3.5-5.1); SODIUM 132 mmol/L (136-145)
[2023-10-29 08:38] LABS: CALCIUM 8.3 mg/dL (8.5-10.1)
[2023-10-29 08:39] LABS: ALBUMIN 1.2 g/dl (3.4-5.0); ANION GAP 18 mmol/L (4-13); BLOOD UREA NITROGEN 75.7 mg/dL (7-18); CO2 20 mmol/L (21-32); GLUCOSE,RANDOM 107 mg/dL (74-106); MAGNESIUM 1.9 mg/dL (1.8-2.4)
[2023-10-29 08:42] LABS: PHOSPHOROUS 8.3 mg/dL (2.5-4.9); SGOT/AST 68 U/L (15-37)
[2023-10-29 08:44] LABS: SGPT/ALT 33 U/L (13-61); TOT PROT 4.7 g/dl (6.4-8.2)
[2023-10-29 08:45] LABS: ALK PHOS 328 U/L (45-117)
[2023-10-29] MEDS: GABAPENTIN 100 MG CAPSULE PO SCH (09:22)
[2023-10-29 09:45] LABS: ANISOCYTOSIS 1+; MACROCYTOSIS 1+
[2023-10-29] MEDS: PIPERACILLIN/TAZOB 2.25 GM 2.25 GM in DEXTROSE 5%-WATER - 50 ML IVPB SCH ×3 (12:30→17:45)
[2023-10-29] MEDS: VANCOMYCIN/WATER FOR INJ (PEG) 1,000 MG/200 ML BAG IVPB ONE (12:31)
[2023-10-29] MEDS: LACTULOSE 20 GM/30 ML UDC (FOR ORAL USE ONLY) PO ONE (14:09)
[2023-10-29] MEDS: ACETAMINOPHEN 1000 MG/100 ML BAG IVPB PRN (17:51)
[2023-10-29] MEDS: MIDODRINE HCL 2.5 MG TABLET PO SCH (22:33)
[2023-10-30] MEDS: LACTULOSE 20 GM/30 ML UDC (FOR ORAL USE ONLY) PO ONE (11:15)
[2023-10-30 14:15] LABS: BF WBC & OTHER NUCLEATED CELLS 809 /mm3
[2023-10-30 14:46] LABS: BODY FLUID MACROPHAGES 5 %; BODY FLUID MONOCYTE 4 %
[2023-10-31] MEDS ORDERED: ADENOSINE 6 MG/2 ML VIAL IVPUSH ONE (02:06)
[2023-10-31] MEDS ORDERED: METOPROLOL TARTRATE 5 MG/5 ML VIAL ONE (02:13)
[2023-10-31] MEDS ORDERED: LORazepam 2 MG/ML SDV VIAL IVPUSH ONE (02:20)
[2023-10-31] MEDS: ADENOSINE 6 MG/2 ML VIAL IVPUSH ONE ×2 (02:28)
[2023-10-31] MEDS: MIDAZOLAM HCL 2 MG/2 ML SINGLE DOSE VIAL IVPUSH ONE (02:29)
[2023-10-31 02:41] LABS: ARTERIAL BLD GAS O2 SATURATION 99.6 % (95-98); ARTERIAL BLOOD GAS BASE EXCESS -10.1 mmol/L (-2-2); ARTERIAL BLOOD GAS PO2 303.2 mmHg (80-100); ARTERIAL BLOOD GAS pH 7.203 (7.350-7.450)
[2023-10-31 05:06] LABS: HEMATOCRIT 30.3 % (32.4-45.2); HEMOGLOBIN 10.2 GM/dL (10.7-15.3); MCH 32.3 pg (25.7-33.7); MCHC 33.7 g/dl (32.0-36.0); MEAN CELL VOLUME 95.8 fl (80-96); MEAN PLT VOLUME 7.7 fl (7.5-11.1); PLATELET COUNT 189 10^3/uL (134-434); RBC 3.16 M/mm3 (3.60-5.2)
[2023-10-31] MEDS: PHENYLEPHRINE NS PREMIX 50,000 MCG/500 ML BAG IVPB SCH (05:11)
[2023-10-31 05:21] LABS: CHLORIDE 91 mmol/L (98-107); POTASSIUM 4.7 mmol/L (3.5-5.1); SODIUM 130 mmol/L (136-145)
[2023-10-31 05:24] LABS: ALBUMIN 1.2 g/dl (3.4-5.0); ANION GAP 18 mmol/L (4-13); BLOOD UREA NITROGEN 77.1 mg/dL (7-18); CALCIUM 8.9 mg/dL (8.5-10.1); CO2 20 mmol/L (21-32); GLUCOSE,RANDOM 182 mg/dL (74-106); MAGNESIUM 1.9 mg/dL (1.8-2.4)
[2023-10-31] MEDS: LORazepam 2 MG/ML SDV VIAL IVPUSH ONE (05:24)
[2023-10-31 05:27] LABS: SGPT/ALT 27 U/L (13-61)
[2023-10-31 05:28] LABS: SGOT/AST 33 U/L (15-37)
[2023-10-31 05:29] LABS: BILIRUBIN,TOTAL 1.3 mg/dL (0.2-1); TOT PROT 5.6 g/dl (6.4-8.2)
[2023-10-31 05:46] LABS: ALK PHOS 246 U/L (45-117); CREATININE 8.5 mg/dL (0.55-1.3)
[2023-10-31 05:46] LABS: LACTIC ACID 2.2 mmol/L (0.4-2.0)
[2023-10-31] MEDS: VANCOMYCIN/WATER FOR INJ (PEG) 1,000 MG/200 ML BAG IVPB ONE (06:45)
[2023-10-31] MEDS: PANTOPRAZOLE 40 MG TABLET PO SCH (07:30)
[2023-10-31] MEDS: MAGNESIUM 1GM/D5W 100ML - 100 ML IVPB IVPB ONE (09:08)
[2023-10-31 09:16] LABS: ANISOCYTOSIS 2+; MACROCYTOSIS 0
[2023-10-31 09:29] LABS: PLATELET ESTIMATE ADEQUATE
[2023-10-31 09:41] LABS: HEMOGLOBIN 10.3 GM/dL (10.7-15.3); MCH 32.3 pg (25.7-33.7); MCHC 33.3 g/dl (32.0-36.0); MEAN PLT VOLUME 7.6 fl (7.5-11.1); PLATELET COUNT 193 10^3/uL (134-434); RBC 3.19 M/mm3 (3.60-5.2); RDW 22.7 % (11.6-15.6)
[2023-10-31 09:54] LABS: WHITE BLOOD COUNT 1.7 K/mm3 (4.0-10.0)
[2023-10-31 10:37] LABS: ANISOCYTOSIS 1+; MACROCYTOSIS 0
[2023-10-31] MEDS ORDERED: SODIUM CHLORIDE 0.9% 500 ML INFUS.BAG IV ONE (12:09)
[2023-10-31] MEDS: SODIUM CHLORIDE 0.9% 1000 ML INFUS.BAG IV ONE (12:30)
[2023-10-31] MEDS: ACETAMINOPHEN 1000 MG/100 ML BAG IVPB ONE (12:45)
[2023-10-31] MEDS: MIDODRINE HCL 5 MG TABLET PO SCH (13:05)
[2023-10-31] MEDS: MUPIROCIN 2% TOPICAL OINTMENT FOR DECOLONIZATION NS SCH (15:03)
[2023-10-31] MEDS: LACTULOSE 20 GM/30 ML UDC (FOR ORAL USE ONLY) PO ONE (17:09)
[2023-10-31 19:49] LABS: BF WBC & OTHER NUCLEATED CELLS 42 /mm3
[2023-10-31 21:56] LABS: BODY FLUID MACROPHAGES 22 %
[2023-10-31 21:57] LABS: BODY FLUID MESOTHELIAL 3 %
[2023-10-31] MEDS: PANTOPRAZOLE SODIUM 40 MG VIAL IVPUSH SCH (22:00)
[2023-10-31] MEDS: CHLORHEXIDINE GLUCONATE 4% CLEANSER FOR DECOLONIZATION TP SCH (22:02)
[2023-11-01 07:22] LABS: HEMATOCRIT 28.3 % (32.4-45.2); HEMOGLOBIN 9.5 GM/dL (10.7-15.3); MCH 32.2 pg (25.7-33.7); MCHC 33.6 g/dl (32.0-36.0); MEAN CELL VOLUME 95.8 fl (80-96); MEAN PLT VOLUME 7.6 fl (7.5-11.1); PLATELET COUNT 160 10^3/uL (134-434); RBC 2.96 M/mm3 (3.60-5.2); RDW 22.5 % (11.6-15.6)
[2023-11-01 08:25] LABS: BLOOD UREA NITROGEN 71.2 mg/dL (7-18); CALCIUM 7.8 mg/dL (8.5-10.1)
[2023-11-01 08:26] LABS: MAGNESIUM 1.9 mg/dL (1.8-2.4); TOT PROT 4.8 g/dl (6.4-8.2)
[2023-11-01 08:27] LABS: CREATININE 7.3 mg/dL (0.55-1.3)
[2023-11-01 08:28] LABS: PHOSPHOROUS 7.9 mg/dL (2.5-4.9)
[2023-11-01] MEDS ORDERED: AMMONIUM LACTATE 12% LOTION 225 GM BOTTLE TP PRN (11:15)
[2023-11-01] MEDS ORDERED: INSULIN (NOVOLOG) ASPART 100 UNITS/ML 10ML VIAL ONE (11:38)
[2023-11-01 12:04] LABS: ANISOCYTOSIS 1+; MACROCYTOSIS 1+
[2023-11-01] MEDS: ALBUTEROL SO4 2.5/IPRATROPIUM 0.5 INH SOL 3 ML VIAL.NEB. NEB SCH (14:45)
[2023-11-01] MEDS: SODIUM CHLORIDE 250 ML IV STA (14:51)
[2023-11-01] MEDS: CEFEPIME HCL 1 GM VIAL (RESTRICTED TO ID) IVPB SCH (15:30)
[2023-11-01] MEDS: OSELTAMIVIR PHOSPHATE 75 MG CAPSULE PO ONE (15:31)
[2023-11-01] MEDS: OSELTAMIVIR PHOSPHATE 30 MG CAPSULE PO ONE (15:52)
[2023-11-02] MEDS: ACETAMINOPHEN 1000 MG/100 ML BAG IVPB PRN (04:15)
[2023-11-02] MEDS: LACTATED RINGERS SOLUTION 1000 ML INFUS.BAG IV ONE (05:34)
[2023-11-02 08:35] LABS: HEMATOCRIT 23.8 % (32.4-45.2); HEMOGLOBIN 8.1 GM/dL (10.7-15.3); MCH 32.5 pg (25.7-33.7); MCHC 34.1 g/dl (32.0-36.0); MEAN CELL VOLUME 95.2 fl (80-96); MEAN PLT VOLUME 8.4 fl (7.5-11.1); PLATELET COUNT 127 10^3/uL (134-434); RDW 21.1 % (11.6-15.6)
[2023-11-02 08:38] LABS: POTASSIUM 3.4 mmol/L (3.5-5.1)
[2023-11-02 08:41] LABS: ALBUMIN 0.9 g/dl (3.4-5.0); BLOOD UREA NITROGEN 69.4 mg/dL (7-18); MAGNESIUM 1.7 mg/dL (1.8-2.4)
[2023-11-02 08:44] LABS: CREATININE 6.2 mg/dL (0.55-1.3); PHOSPHOROUS 6.5 mg/dL (2.5-4.9)
[2023-11-02 08:45] LABS: TOT PROT 4.4 g/dl (6.4-8.2); WHITE BLOOD COUNT 0.6 K/mm3 (4.0-10.0)
[2023-11-02] MEDS: SODIUM CHLORIDE 250 ML IV STA ×2 (08:45→11:11)
[2023-11-02 08:46] LABS: BILIRUBIN,TOTAL 0.8 mg/dL (0.2-1)
[2023-11-02] MEDS: MIDODRINE HCL 5 MG TABLET PO SCH (09:30)
[2023-11-02] MEDS: MAGNESIUM SULF 50% (8.12 MEQ/2 ML-1 GM VIAL) IVPB ONE (09:31)
[2023-11-02 09:38] LABS: ANISOCYTOSIS 1+; MACROCYTOSIS 1+
[2023-11-02 23:00] LABS: HIV INTERPRETATION NEGATIVE (NEGATIVE)
[2023-11-02] MEDS: ACETAMINOPHEN 325 MG TABLET (FP) PO PRN (23:36)
[2023-11-03 07:55] LABS: POTASSIUM 3.2 mmol/L (3.5-5.1)
[2023-11-03 08:03] LABS: HEMOGLOBIN 9.2 GM/dL (10.7-15.3); MCH 32.5 pg (25.7-33.7); MCHC 34.2 g/dl (32.0-36.0); MEAN CELL VOLUME 94.9 fl (80-96); MEAN PLT VOLUME 8.7 fl (7.5-11.1); PLATELET COUNT 136 10^3/uL (134-434); RBC 2.85 M/mm3 (3.60-5.2); RDW 22.3 % (11.6-15.6); RETICULOCYTES 1.38 % (0.5-1.5)
[2023-11-03 08:05] LABS: WHITE BLOOD COUNT 0.7 K/mm3 (4.0-10.0)
[2023-11-03 08:07] LABS: CALCIUM 7.7 mg/dL (8.5-10.1)
[2023-11-03 08:08] LABS: BLOOD UREA NITROGEN 55.1 mg/dL (7-18)
[2023-11-03 08:10] LABS: CREATININE 5.2 mg/dL (0.55-1.3)
[2023-11-03 08:12] LABS: TOT PROT 4.7 g/dl (6.4-8.2)
[2023-11-03 09:31] LABS: ANISOCYTOSIS 2+; MACROCYTOSIS 1+
[2023-11-03] MEDS: POTASSIUM CHLORIDE ORAL LIQUID 20 MEQ/15 ML PO ONE (10:23)
[2023-11-03] MEDS ORDERED: BENZOCAINE/MENTH/CETYLPYRD CL 1 EACH LOZENGE MM PRN (11:33)
[2023-11-03] MEDS ORDERED: INSULIN (NOVOLOG) ASPART 100 UNITS/ML 10ML VIAL ONE (11:38)
[2023-11-03] MEDS: ACETAMINOPHEN 1000 MG/100 ML BAG IVPB PRN (12:27)
[2023-11-03] MEDS ORDERED: TBO-FILGRASTIM 300 MCG/0.5 ML DISP.SYRINGE SQ ONE (14:15)
[2023-11-03] MEDS: TBO-FILGRASTIM 300 MCG/0.5 ML DISP.SYRINGE SQ ONE (14:47)
[2023-11-04 08:07] LABS: CHLORIDE 90 mmol/L (98-107); SODIUM 127 mmol/L (136-145)
[2023-11-04 08:20] LABS: CALCIUM 7.7 mg/dL (8.5-10.1)
[2023-11-04 08:21] LABS: ALBUMIN 0.9 g/dl (3.4-5.0); BLOOD UREA NITROGEN 51.7 mg/dL (7-18); CO2 19 mmol/L (21-32); GLUCOSE,RANDOM 181 mg/dL (74-106); MAGNESIUM 1.7 mg/dL (1.8-2.4)
[2023-11-04 08:22] LABS: CREATININE 4.4 mg/dL (0.55-1.3); SGPT/ALT 21 U/L (13-61)
[2023-11-04 08:24] LABS: BILIRUBIN,TOTAL 1.3 mg/dL (0.2-1); PHOSPHOROUS 5.1 mg/dL (2.5-4.9); SGOT/AST 18 U/L (15-37); TOT PROT 4.4 g/dl (6.4-8.2)
[2023-11-04 08:25] LABS: ALK PHOS 111 U/L (45-117)
[2023-11-04 08:28] LABS: ANION GAP 18 mmol/L (4-13); POTASSIUM 2.9 mmol/L (3.5-5.1)
[2023-11-04 08:30] LABS: HEMATOCRIT 26.1 % (32.4-45.2); HEMOGLOBIN 8.9 GM/dL (10.7-15.3); MCH 32.5 pg (25.7-33.7); MCHC 34.2 g/dl (32.0-36.0); MEAN CELL VOLUME 94.9 fl (80-96); PLATELET COUNT 113 10^3/uL (134-434); RBC 2.75 M/mm3 (3.60-5.2); RDW 22.5 % (11.6-15.6)
[2023-11-04 08:34] LABS: WHITE BLOOD COUNT 0.7 K/mm3 (4.0-10.0)
[2023-11-04 09:08] LABS: ANISOCYTOSIS 1+; MACROCYTOSIS 1+
[2023-11-04] MEDS: KCL 10 MEQ IVPB 10 MEQ/100 ML INFUS.BAG IVPB SCH ×2 (09:44→21:58)
[2023-11-04] MEDS: POTASSIUM CHLORIDE ORAL LIQUID 20 MEQ/15 ML PO ONE (09:44)
[2023-11-04] MEDS: SODIUM CHLORIDE 500 ML IV STA (09:48)
[2023-11-04 14:56] VITALS: BMI 27.4
[2023-11-04] MEDS: SODIUM CHLORIDE 0.9% 500 ML INFUS.BAG IV ONE (19:00)
[2023-11-04 21:20] LABS: POTASSIUM 3.4 mmol/L (3.5-5.1)
[2023-11-04 21:22] LABS: BLOOD UREA NITROGEN 49.9 mg/dL (7-18); CALCIUM 7.7 mg/dL (8.5-10.1)
[2023-11-04 21:25] LABS: CREATININE 4.2 mg/dL (0.55-1.3)
[2023-11-04] MEDS ORDERED: INSULIN (NOVOLOG) ASPART 100 UNITS/ML 10ML VIAL ONE (22:47)
[2023-11-05] MEDS: PERITONEAL DIALYSIS 1.5% IP ONE (00:07)
[2023-11-05] MEDS: HEPARIN IP ONE (00:07)
[2023-11-05 06:59] LABS: POTASSIUM 3.6 mmol/L (3.5-5.1)
[2023-11-05 07:09] LABS: HEMATOCRIT 26.3 % (32.4-45.2); MCH 32.4 pg (25.7-33.7); MCHC 34.3 g/dl (32.0-36.0); MEAN CELL VOLUME 94.6 fl (80-96); MEAN PLT VOLUME 9.4 fl (7.5-11.1); PLATELET COUNT 105 10^3/uL (134-434); RBC 2.78 M/mm3 (3.60-5.2); RDW 22.4 % (11.6-15.6)
[2023-11-05 07:18] LABS: WHITE BLOOD COUNT 1.6 K/mm3 (4.0-10.0)
[2023-11-05 07:32] LABS: ALBUMIN 0.9 g/dl (3.4-5.0); BILIRUBIN,TOTAL 1.4 mg/dL (0.2-1); CALCIUM 7.6 mg/dL (8.5-10.1); CREATININE 4.1 mg/dL (0.55-1.3); MAGNESIUM 1.7 mg/dL (1.8-2.4); PHOSPHOROUS 4.9 mg/dL (2.5-4.9); TOT PROT 4.3 g/dl (6.4-8.2)
[2023-11-05] MEDS: COLLAGENASE CLOSTRIDIUM HIST. 30 GRAMS TUBE TP SCH ×2 (08:28→15:40)
[2023-11-05 11:53] LABS: ANISOCYTOSIS 3+; MACROCYTOSIS 0; TARGET CELLS 1+
[2023-11-05] MEDS ORDERED: INSULIN (NOVOLOG) ASPART 100 UNITS/ML 10ML VIAL ONE (21:21)
[2023-11-06] MEDS: SODIUM CHLORIDE 250 ML IV STA (09:40)
[2023-11-06 10:30] LABS: HEMATOCRIT 25.2 % (32.4-45.2); HEMOGLOBIN 8.6 GM/dL (10.7-15.3); MCH 32.5 pg (25.7-33.7); MEAN CELL VOLUME 95.7 fl (80-96); MEAN PLT VOLUME 9.9 fl (7.5-11.1); PLATELET COUNT 83 10^3/uL (134-434); RBC 2.64 M/mm3 (3.60-5.2); RDW 23.2 % (11.6-15.6)
[2023-11-06 10:37] LABS: WHITE BLOOD COUNT 0.6 K/mm3 (4.0-10.0)
[2023-11-06 10:44] LABS: CHLORIDE 92 mmol/L (98-107); SODIUM 129 mmol/L (136-145)
[2023-11-06 10:46] LABS: CALCIUM 7.9 mg/dL (8.5-10.1)
[2023-11-06 10:47] LABS: ALBUMIN 0.8 g/dl (3.4-5.0); BLOOD UREA NITROGEN 42.3 mg/dL (7-18); CO2 19 mmol/L (21-32); GLUCOSE,RANDOM 181 mg/dL (74-106); MAGNESIUM 1.6 mg/dL (1.8-2.4)
[2023-11-06 10:50] LABS: CREATININE 3.7 mg/dL (0.55-1.3); PHOSPHOROUS 4.4 mg/dL (2.5-4.9); SGOT/AST 18 U/L (15-37); SGPT/ALT 17 U/L (13-61)
[2023-11-06 10:52] LABS: BILIRUBIN,TOTAL 1.3 mg/dL (0.2-1)
[2023-11-06 10:53] LABS: ALK PHOS 106 U/L (45-117)
[2023-11-06 10:57] LABS: ANION GAP 18 mmol/L (4-13); POTASSIUM 2.9 mmol/L (3.5-5.1)
[2023-11-06] MEDS: MAGNESIUM 1GM/D5W - 1 GM/100 ML IVPB IVPB ONE (11:55)
[2023-11-06 12:32] LABS: ANISOCYTOSIS 3+; MACROCYTOSIS 0; TARGET CELLS 1+
[2023-11-06] MEDS: NOREPINEPHRINE 0.9 % NACL 8 MG/250 ML BAG IVPB SCH (12:41)
[2023-11-06] MEDS: KCL 10 MEQ IVPB 10 MEQ/100 ML INFUS.BAG IVPB SCH (12:50)
[2023-11-06] MEDS ORDERED: VASopressin 20 UNITS/ML VIAL IV ONE (13:19)
[2023-11-06] MEDS: VASopressin 40 UNITS/100 ML BAG IV SCH (13:37)
[2023-11-07 06:54] LABS: HEMATOCRIT 26.1 % (32.4-45.2); HEMOGLOBIN 8.7 GM/dL (10.7-15.3); MCHC 33.4 g/dl (32.0-36.0); MEAN PLT VOLUME 10.8 fl (7.5-11.1); PLATELET COUNT 45 10^3/uL (134-434); RBC 2.72 M/mm3 (3.60-5.2); RDW 23.4 % (11.6-15.6)
[2023-11-07 07:02] LABS: POTASSIUM 3.3 mmol/L (3.5-5.1)
[2023-11-07 07:05] LABS: CALCIUM 8.5 mg/dL (8.5-10.1)
[2023-11-07 07:06] LABS: ALBUMIN 0.8 g/dl (3.4-5.0); MAGNESIUM 1.8 mg/dL (1.8-2.4)
[2023-11-07 07:09] LABS: CREATININE 3.4 mg/dL (0.55-1.3); PHOSPHOROUS 4.7 mg/dL (2.5-4.9)
[2023-11-07 07:10] LABS: BILIRUBIN,TOTAL 1.4 mg/dL (0.2-1)
[2023-11-07 07:12] LABS: WHITE BLOOD COUNT 0.5 K/mm3 (4.0-10.0)
[2023-11-07] MEDS: POTASSIUM CHLORIDE ORAL LIQUID 20 MEQ/15 ML PO ONE (09:10)
[2023-11-07 09:36] LABS: ANISOCYTOSIS 3+; MACROCYTOSIS 0; TARGET CELLS 1+
[2023-11-07] MEDS ORDERED: NOREPINEPHRINE BITARTRATE 4 MG/4 ML ML IV ONE (10:49)
[2023-11-07 11:10] LABS: ARTERIAL BLD GAS O2 SATURATION 99.1 % (95-98); ARTERIAL BLOOD GAS BASE EXCESS -12.7 mmol/L (-2-2); ARTERIAL BLOOD GAS PO2 192.3 mmHg (80-100); ARTERIAL BLOOD GAS pH 7.232 (7.350-7.450)
[2023-11-07 11:23] LABS: ALLENS TEST POSITIVE
[2023-11-07] MEDS: KCL 10 MEQ IVPB 10 MEQ/100 ML INFUS.BAG IVPB SCH (11:35)
[2023-11-07 13:08] LABS: LACTIC ACID 7.2 mmol/L (0.4-2.0)
[2023-11-07] MEDS: MEROPENEM 500 MG in DEXTROSE 5%-WATER 100 ML IVPB SCH (13:43)
[2023-11-07] MEDS: NOREPINEPHRINE BITARTRATE 4,000 MCG in DEXTROSE 5%-WATER - 496 ML IV SCH (13:48)
[2023-11-07] MEDS: SODIUM CHLORIDE 250 ML IV STA ×2 (13:48→17:18)
[2023-11-07] MEDS: VANCOMYCIN/WATER FOR INJ (PEG) 1,000 MG/200 ML BAG IVPB ONE (14:23)
[2023-11-07] MEDS: CASPOFUNGIN ACETATE 70 MG in SODIUM CHLORIDE 250 ML IVPB ONE (14:51)
[2023-11-07] MEDS: SODIUM CHLORIDE 500 ML IV STA (14:57)
[2023-11-07 17:44] LABS: LACTIC ACID 7.4 mmol/L (0.4-2.0)
[2023-11-07] MEDS: DEXTROSE 50%-WATER 25 GM/50 ML DISP.SYRIN IVPUSH ONE (17:52)
[2023-11-07 17:54] VITALS: PULSE 120
[2023-11-07] MEDS ORDERED: SODIUM CHLORIDE 500 ML IV STA (17:59)
[2023-11-07] MEDS ORDERED: HYDROCORTISONE SOD SUCCINATE 100 MG/2 ML VIAL IVPUSH SCH (20:00)
[2023-11-07] MEDS ORDERED: NOREPINEPHRINE BITARTRATE/D5W 8 MG/250 ML BAG IVPB SCH (21:15)
[2023-11-07 21:56] VITALS: BP 70/51; RESP 27; TEMP 97.9
[2023-11-08] MEDS ORDERED: CASPOFUNGIN ACETATE 50 MG in SODIUM CHLORIDE 250 ML IVPB SCH (14:00)
== END 2023-11-07 21:15 | disposition expired | DRG 377 ==
LOC: JER 09:07 → JERBED 14:47 → J4S 10-27 13:43 → JICU 10-31 03:09
PROVIDERS: ADMIT Internal Medicine; ATTEND Internal Medicine Pulmonary Disease
PROC: 30233N1 Transfusion of Nonautologous Red Blood Cells into Peripheral Vein, Percutaneous Approach (ICD-10-PCS; 2023-10-26)
PROC: 0DJ08ZZ Inspection of Upper Intestinal Tract, Via Natural or Artificial Opening Endoscopic (ICD-10-PCS; principal; 2023-10-27 11:45)
PROC: 05HB33Z Insertion of Infusion Device into Right Basilic Vein, Percutaneous Approach (ICD-10-PCS; 2023-11-06)
PROC: 3E1M39Z Irrigation of Peritoneal Cavity using Dialysate, Percutaneous Approach (ICD-10-PCS; 2023-11-06)
PROC: 05HM33Z Insertion of Infusion Device into Right Internal Jugular Vein, Percutaneous Approach (ICD-10-PCS; 2023-11-07)
PROC: B543ZZA Ultrasonography of Right Jugular Veins, Guidance (ICD-10-PCS; 2023-11-07)
DX: K92.2 Gastrointestinal hemorrhage, unspecified (principal); J18.9 Pneumonia, unspecified organism; N18.6 End stage renal disease; R65.20 Severe sepsis without septic shock; I12.0 Hypertensive chronic kidney disease with stage 5 chronic kidney disease or end stage renal disease; D62 Acute posthemorrhagic anemia; I47.10 Supraventricular tachycardia, unspecified; I24.89 Other forms of acute ischemic heart disease; D61.818 Other pancytopenia; E87.1 Hypo-osmolality and hyponatremia; E11.22 Type 2 diabetes mellitus with diabetic chronic kidney disease; Z99.2 Dependence on renal dialysis; E11.42 Type 2 diabetes mellitus with diabetic polyneuropathy; R21 Rash and other nonspecific skin eruption; E87.6 Hypokalemia; E78.5 Hyperlipidemia, unspecified
CPT/HCPCS: 0241U-QW; 36415; 36430; 36600; 71045-TC-FY; 76705-TC; 80048; 80053; 82272; 82308; 82550; 82607; 82728; 82746; 82803; 82962; 82977; 83516; 83540; 83550; 83605; 83690; 83735; 83880; 83970; 84100; 84466; 84484; 85025; 85045; 85379; 85610; 85730; 86038; 86140; 86308; 86704; 86803; 86850; 86900; 86901; 86922; 87040; 87070; 87075; 87106; 87205; 87340; 87389; 87497; 87517; 87799; 88300-TC; 93005; 93010; 94640; 99285-25; G0480; J0131; J1447; J1644; J3490; P9058